=== PATIENT | female | born 2000 | race Two or more races ===

== ENCOUNTER 2021-08-28 10:12 | Emergency (ER) | payer OTHER ==
[~2021-08-28] VITALS: Ht 152.4 cm; Wt 45.4 kg
--- NOTE | 2021-08-28 10:25 | NUR ---
PT CAME TO ER C/O LOWER BACK PAIN PS 05/18 SINCE THIS MORNING S/P GLF ON FRIDAY. AAOX4, BREATHING EVEN AND UNLABORED. ASSISTED TO ER BED 1.
[2021-08-28] MEDS ORDERED: CYCLOBENZAPRINE 10 MG TABLET ONE (10:57)
[2021-08-28] MEDS ORDERED: KETOROLAC TROMETHAMINE 15 MG/ML VIAL ONE (10:57)
[2021-08-28] MEDS ORDERED: oxyCODONE/APAP (5/325 MG) 1 UDTAB TABLET ONE (10:57)
[2021-08-28] MEDS ORDERED: KETOROLAC TROMETHAMINE INJ 30 MG/ML VIAL IM ONE (11:00)
[2021-08-28] MEDS ORDERED: CYCLOBENZAPRINE 10 MG TABLET PO ONE (11:00)
[2021-08-28] MEDS ORDERED: oxyCODONE/APAP (5/325 MG) 1 UDTAB TABLET PO ONE (11:00)
--- NOTE | 2021-08-28 11:12 | NUR ---
PT TAKEN TO CT
--- NOTE | 2021-08-28 12:32 | NUR ---
PT LAYING COMFORTABLY IN BED, VS STABLE, FAMILY MEMBER AT BEDSIDE
--- NOTE | 2021-08-28 13:12 | NUR ---
PT LAYING COMFORTABLY IN BED, VS STABLE
[2021-08-28] MEDS ORDERED: NAPR-1009 PO (14:09)
[2021-08-28] MEDS ORDERED: CYCL5TAB PO (14:09)
[2021-08-28] MEDS ORDERED: METH4TAB3 PO (14:09)
--- NOTE | 2021-08-28 14:16 | NUR ---
Patient discharged to home in stable condition. Written and verbal after care instructions given. Patient verbalizes understanding of instruction.
[2021-08-28 14:34] VITALS: BP 113/56
== END 2021-08-28 14:20 | disposition home or self-care (01) ==
LOC: ER 10:15
DX: M54.16 Radiculopathy, lumbar region (principal); Z79.899 Other long term (current) drug therapy
CPT/HCPCS: 72131; 96372; 99284; J1885

== ENCOUNTER 2021-11-13 11:02 | Emergency (ER) | payer OTHER ==
[~2021-11-13] VITALS: Ht 152.4 cm; Wt 45.4 kg
[~2021-11-13 11:02] MED LIST: CYCL5TAB PO; METH4TAB3 PO; NAPR-1009 PO
--- NOTE | 2021-11-13 11:20 | NUR ---
BIBS C/O RIGHT RIB PAIN P/S 04/17 STARED 3/6 S/P [employer]IUJITSU AND [employer] TRAINING. PATIENT IS ALERT, ORIENTED X4. VITALS CHECKED. WITH DIFFICULTY BREATHING DUE TO PAIN ON THE RIGHT SIDE OF HER CHEST. OXYGEN SAT IS 100%, BP 118/83mmHg, HR 59 and RR 19. PLACED COMFORTABLY ON ER BED.
--- NOTE | 2021-11-13 12:07 | NUR ---
PUBLIC HEALTH EDUCATOR AT BEDSIDE TO DO CXR
[2021-11-13] MEDS ORDERED: KETOROLAC TROMETHAMINE 15 MG/ML VIAL ONE (12:56)
[2021-11-13] MEDS ORDERED: KETOROLAC TROMETHAMINE INJ 30 MG/ML VIAL IM ONE (13:00)
[2021-11-13] MEDS ORDERED: HYDR-4209 PO (13:12)
--- NOTE | 2021-11-13 14:32 | NUR ---
Patient discharged to home in stable condition. Written and verbal after care instructions given. Patient verbalizes understanding of instruction.
[2021-11-13 14:33] VITALS: BP 121/79
== END 2021-11-13 14:33 | disposition home or self-care (01) ==
LOC: ER 11:02
DX: S29.011A Strain of muscle and tendon of front wall of thorax, initial encounter (principal); S46.911A Strain of unspecified muscle, fascia and tendon at shoulder and upper arm level, right arm, initial encounter; S20.211A Contusion of right front wall of thorax, initial encounter; Z79.899 Other long term (current) drug therapy; X58.XXXA Exposure to other specified factors, initial encounter; Y93.72 Activity, wrestling; Y92.89 Other specified places as the place of occurrence of the external cause; Y99.8 Other external cause status
CPT/HCPCS: 71045; 96372; 99283; J1885